=== PATIENT | male | born 2000 | race American Indian/Alaskan Native ===

== ENCOUNTER 2021-04-26 01:48 | Emergency (ER) | payer SELFPAY ==
[2021-04-26 04:02] VITALS: BP 111/66
--- NOTE | 2021-04-26 04:49 | Emergency Department Report ---
ED General Adult HPI - General Chief complaint: Adult Asthma Stated complaint: ASTHMA Time Seen by Provider: 04/26/21 04:09 Source: patient Mode of arrival: Ambulatory Limitations: No Limitations - History of Present Illness Initial comments: 21-year-old male patient with history of asthma presents to the emergency department with complaints of chest tightness for 2 days. Patient states he is visiting from [place] and left his ProAir inhaler at home. Patient states his current symptoms are consistent with prior asthma flareups. No known sick con tacts. No current steroid or antibiotic use. Denies fever, chills, cough, wheezing, shortness of breath, hemoptysis. Denies all other complaints at this time. - Related Data Previous Rx's Medication Instructions Recorded Last Taken Type Albuterol Sulfate [Proair 90 mcg IH Q4H PRN #1 aer.pw.bas 04/26/21 Unknown Rx Digihaler] predniSONE [Deltasone] 20 mg PO QDAY 5 Days #7 tab 04/26/21 Unknown Rx Allergies Allergy/AdvReac Type Severity Reaction Status Date / Time No Known Allergies Allergy Unverified 04/26/21 01:50 ED Review of Systems ROS: Stated complaint: ASTHMA Other details as noted in HPI Other: GENERAL: Negative for fever, chills, weight change, anorexia, fatigue. ENT: Negative for ear pain, difficulty hearing, sore throat, nasal congestion, epistaxis. CARDIOVASCULAR: Negative for palpitations, lower extremity swelling. PULMONARY: Positive for chest tightness. GASTROINTESTINAL: Negative for abdominal pain, nausea, vomiting, diarrhea, constipation. MUSCULOSKELETAL: Negative for joint pain, joint swelling, myalgias, back pain, neck pain. NEUROLOGICAL: Negative for headache, seizure, syncope, paresthesias, weakness. INTEGUMENTARY: Negative for erythema, rash, diaphoresis, laceration, ecchymosis. HEMATOLOGICAL: Negative for hemoptysis, hematemesis, hematochezia, hematuria. PSYCHIATRIC: Negative for hallucinations, suicidal ideation, homicidal ideation, anxiety, depression. ED Past Medical Hx - Social History Smoking Status: Never Smoker Substance Use Type: None - Medications Home Medications: Home Medications Medication Instructions Recorded Confirmed Last Taken Type Albuterol Sulfate [Proair 90 mcg IH Q4H PRN #1 aer.pw.bas 04/26/21 Unknown Rx Digihaler] predniSONE [Deltasone] 20 mg PO QDAY 5 Days #7 tab 04/26/21 Unknown Rx ED Physical Exam - General Limitations: No Limitations - Other Other exam information: General: Awake and alert. No acute distress. Head: Atraumatic, normocephalic. Eyes: EOMI. Pupils are equal and round. Normal sclera and conjunctiva. ENT: Oral mucosa is moist. Normal pharyngeal exam. Neck: Supple. No lymphadenopathy. Pulmonary: No respiratory distress. Clear to auscultation bilaterally. Cardiac: Regular rate and rhythm. Pulses are palpable and equal bilaterally. No lower extremity cyanosis or edema. Skin: Warm and dry. No rashes. Abdomen: Soft, non-tender, non-protuberant. No guarding, rigidity, or rebound. Bowel sounds are normal. No organomegaly or masses noted. Back: Normal alignment. No CVA tenderness. Extremities: Symmetrical. Full range of motion intact. Neurological: Alert and oriented, appropriately interactive, no focal deficits. Psych: Cooperative. Appropriate mood and affect. Speech is evenly metered. Thoughts are logically construed. ED Course Vital Signs 04/26/21 01:53 Temperature 97.6 F Pulse Rate 59 L Respiratory 20 Rate Blood Pressure 111/66 O2 Sat by Pulse 99 Oximetry ED Medical Decision Making - Medical Decision Making Patient presents to the emergency department with complaints of asthma exacerbation. Patient is traveling and does not have his inhaler. His symptoms are consistent with prior asthma flareups. He is afebrile, hemodynamically stable, no hypoxia, no respiratory distress. No clinical indication for further diagnostic work-up or emergent breathing treatment administration at this time. Patient will be discharged home with refill of his inhaler as well as a short course of steroids. Patient expressed understanding and is agreeable to plan of care. Strict return precautions provided. History, exam, diagnostic testing, and current condition do not suggest worrisome pathology to warrant further testing, continued ED treatment, admission, or surgical evaluation at this point. Given the low probability of a significant medical illness, it would be more likely to result in harm than benefit to perform further testing at this stage. Discussed findings, presumptive diagnosis, need for follow-up and specific signs/symptoms that should prompt immediate return to the emergency department. Instructions were explained in detail to the patient in addition to giving written discharge information. Patient expressed understanding and was given the opportunity to ask questions, all of which were satisfactorily answered prior to discharge home. Critical care attestation.: If time is entered above; I have spent that time in minutes in the direct care of this critically ill patient, excluding procedure time. ED Disposition Clinical Impression: Asthma exacerbation Qualifiers: Asthma severity: unspecified severity Asthma persistence: unspecified Qualified Code(s): J45.901 - Unspecified asthma with (acute) exacerbation Disposition: HOME / SELF CARE / HOMELESS Is pt being admited?: No Does the pt Need Aspirin: No Condition: Stable Instructions: Asthma, Adult, [id number] Additional Instructions: Use albuterol inhaler as directed. Take Prednisone with food as directed. Avoid environmental triggers which may worsen your asthma. Follow-up with primary care provider upon returning home. Call Wednesday to schedule an appointment. Return to the emergency department immediately for new or worsening symptoms. Prescriptions: predniSONE [Deltasone] 20 mg PO QDAY 5 Days #7 tab Albuterol Sulfate [Proair Digihaler] 90 mcg IH Q4H PRN #1 aer.pw.bas PRN Reason: Shortness Of Breath Referrals: [facility] [Outside] - 3-5 Days Time of Disposition: 04:50
== END 2021-04-26 11:55 | disposition home or self-care (01) ==
LOC: ED 01:48
DX: J45.901 Unspecified asthma with (acute) exacerbation (principal)
CPT/HCPCS: 99281